=== PATIENT | male | born 1980 | race African-American/Black ===

== ENCOUNTER 2024-05-01 06:07 | Emergency (ER) | payer OTHER ==
[~2024-05-01] VITALS: Ht 182.9 cm; Wt 106.6 kg
[2024-05-01 06:25] VITALS: BP 146/84; TEMP 98.2; O2SAT 99
[2024-05-01] MEDS ORDERED: OLAN5TAB3 PO (06:30)
[2024-05-01] MEDS ORDERED: OLANZAPINE 5 MG TABLET ONE (06:30)
[2024-05-01] MEDS: OLANZAPINE 5 MG TABLET PO ONE (06:32)
== END 2024-05-01 06:53 | disposition home or self-care (01) ==
LOC: ER 06:07
DX: F20.9 Schizophrenia, unspecified (principal); F17.200 Nicotine dependence, unspecified, uncomplicated; Z76.0 Encounter for issue of repeat prescription; Z60.2 Problems related to living alone

== ENCOUNTER 2024-07-22 17:29 | Emergency (ER) | payer OTHER ==
[~2024-07-22] VITALS: Ht 175.3 cm; Wt 90.7 kg
[~2024-07-22 17:29] MED LIST: OLAN5TAB3 PO
[2024-07-22] MEDS: IV NS 0.9% 1,000 ML BAG IV ONE (18:00)
[2024-07-22] MEDS: MECLIZINE HCL 12.5 MG TABLET PO ONE (18:00)
[2024-07-22 18:02] LABS: BASOPHILS # (AUTO) 0.1 K/uL (0.0-0.2); BASOPHILS % (AUTO) 1.3 % (0.0-2.0); EOSINOPHILS # (AUTO) 0.1 K/uL (0.0-0.7); EOSINOPHILS % (AUTO) 3.2 % (0.0-6.0); HEMATOCRIT 42 % (39-51); HEMOGLOBIN 13.9 g/dL (13.5-17.5); LYMPHOCYTES # (AUTO) 1.4 K/uL (0.8-4.8); LYMPHOCYTES % (AUTO) 31.4 % (20.0-44.0); MEAN CORPUSCULAR HEMOGLOBIN 28 PG (26.0-33.0); MEAN CORPUSCULAR HGB CONC 33 g/dl (31.0-36.0); MEAN CORPUSCULAR VOLUME 86 fL (80-96); MONOCYTES # (AUTO) 0.5 K/uL (0.1-1.30); MONOCYTES % (AUTO) 11.6 % (2.0-12.0); NEUTROPHILS # (AUTO) 2.3 K/uL (1.8-8.9); NEUTROPHILS % (AUTO) 52.5 % (43.0-81.0); PLATELET COUNT (AUTO) 189 K/uL (150-450); RED CELL DISTRIBUTION WIDTH 15.3 % (11.5-15.0); WHITE BLOOD COUNT (AUTO) 4.4 K/uL (4.3-11.0)
[2024-07-22 18:12] LABS: CALCIUM, SERUM 8.7 mg/dL (8.5-10.1); CREATININE 1.2 mg/dL (0.6-1.3); POTASSIUM 4.3 mmol/L (3.5-5.1)
[2024-07-22] MEDS ORDERED: MECLIZINE HCL 25 MG TABLET ONE (18:38)
[2024-07-22] MEDS ORDERED: DOXY-326 PO (19:07)
[2024-07-22] MEDS ORDERED: MECL-159 PO (19:07)
[2024-07-22] MEDS ORDERED: LIDOCAINE 1% INJ 50 ML MDV IJ ONE (19:49)
[2024-07-22] MEDS ORDERED: CEFTRIAXONE 500 MG VIAL ONE (19:49)
[2024-07-22] MEDS ORDERED: DOXYCYCLINE HYCLATE (100 MG) 100 MG TABLET ONE (19:50)
[2024-07-22] MEDS: CEFTRIAXONE 1 G VIAL IM ONE (20:13)
[2024-07-22] MEDS: DOXYCYCLINE HYCLATE (100 MG) 100 MG TABLET PO ONE (20:13)
[2024-07-22 21:20] VITALS: BP 128/78; TEMP 98.1; O2SAT 98
[2024-07-23 11:36] LABS: HIV-1 p24 ANTIGEN NON REACTIVE (NONREACTIVE); HIV-1/2 ANTIBODY NON REACTIVE (NONREACTIVE)
[2024-07-25 05:12] LABS: RAPID PLASMA REAGIN QUAL. Non Reactive (Non Reactive)
[2024-07-27 08:12] LABS: *HSV 1 DNA PCR Negative (Negative); *HSV 2 DNA PCR Negative (Negative)
== END 2024-07-22 21:22 | disposition home or self-care (01) ==
LOC: ER 17:37
DX: R42 Dizziness and giddiness (principal); Z20.2 Contact with and (suspected) exposure to infections with a predominantly sexual mode of transmission; F17.200 Nicotine dependence, unspecified, uncomplicated; Z60.2 Problems related to living alone
CPT/HCPCS: 99285; 96360; 70450; 86593; 86592; 93005; 85025; 80048; 36415; 87529; 87806; 96372; J8597; J3490; J0696

== ENCOUNTER 2024-07-27 13:35 | Emergency (ER) | payer OTHER ==
[~2024-07-27] VITALS: Ht 175.3 cm; Wt 90.7 kg
[~2024-07-27 13:35] MED LIST changes: +DOXY-326 PO; +MECL-159 PO
[2024-07-27] MEDS ORDERED: ONDANSETRON 4 MG TAB.RAPDIS ONE (14:49)
[2024-07-27] MEDS: ONDANSETRON 4 MG TAB.RAPDIS PO ONE (14:51)
[2024-07-27 14:58] LABS: BASOPHILS # (AUTO) 0.1 K/uL (0.0-0.2); BASOPHILS % (AUTO) 1.1 % (0.0-2.0); EOSINOPHILS # (AUTO) 0.3 K/uL (0.0-0.7); EOSINOPHILS % (AUTO) 5.3 % (0.0-6.0); HEMATOCRIT 42 % (39-51); HEMOGLOBIN 13.7 g/dL (13.5-17.5); LYMPHOCYTES # (AUTO) 1.3 K/uL (0.8-4.8); LYMPHOCYTES % (AUTO) 25.8 % (20.0-44.0); MEAN CORPUSCULAR HEMOGLOBIN 28 PG (26.0-33.0); MEAN CORPUSCULAR HGB CONC 33 g/dl (31.0-36.0); MEAN CORPUSCULAR VOLUME 86 fL (80-96); MONOCYTES # (AUTO) 0.6 K/uL (0.1-1.30); MONOCYTES % (AUTO) 11.3 % (2.0-12.0); NEUTROPHILS # (AUTO) 2.8 K/uL (1.8-8.9); NEUTROPHILS % (AUTO) 56.5 % (43.0-81.0); PLATELET COUNT (AUTO) 215 K/uL (150-450); RED BLOOD CELL COUNT(AUTO) 4.86 MIL/uL (4.5-6.0); RED CELL DISTRIBUTION WIDTH 15.9 % (11.5-15.0)
[2024-07-27 15:05] LABS: CREATININE 0.9 mg/dL (0.6-1.3); POTASSIUM 4.2 mmol/L (3.5-5.1)
[2024-07-27 15:23] LABS: APPEARANCE,URINE CLEAR (CLEAR); BILIRUBIN,URINE NEGATIVE (NEGATIVE); BLOOD, URINE NEGATIVE Ery/uL (NEGATIVE); COLOR,URINE YELLOW (YELLOW); KETONES,URINE NEGATIVE (NEGATIVE); LEUKOCYTE ESTERASE ,URINE NEGATIVE (NEGATIVE); NITRITE, URINE NEGATIVE (NEGATIVE); PH,URINE 6.5 (5.0-8.0); PROTEIN,URINE NEGATIVE (NEGATIVE); UGLUCOSE NEGATIVE (NEGATIVE)
[2024-07-27] MEDS ORDERED: ONDA4TAB5 PO (15:55)
[2024-07-27 16:22] VITALS: BP 128/78; TEMP 97.9; O2SAT 98
[2024-07-27 16:23] LABS: RBC,URINE 0-2 /HPF (0-2); WBC,URINE 0-2 /HPF (0-3)
[2024-07-27 16:24] LABS: ADD URINE CULTURE NO; BACTERIA,URINE None seen /HPF (None Seen); SQUAMOUS EPITHELIAL CELL,UR 0-2 /HPF (None Seen)
== END 2024-07-27 16:22 | disposition home or self-care (01) ==
LOC: ER 15:39
DX: R53.1 Weakness (principal); R42 Dizziness and giddiness; R50.9 Fever, unspecified; F17.200 Nicotine dependence, unspecified, uncomplicated; F25.9 Schizoaffective disorder, unspecified; F31.9 Bipolar disorder, unspecified; Z59.00 Homelessness unspecified; Z60.2 Problems related to living alone; Z79.899 Other long term (current) drug therapy
CPT/HCPCS: 99284; 93005; 85025; 80048; 81001; 36415; 86850; 98960; Q0162

== ENCOUNTER 2024-08-30 17:31 | Emergency (ER) | payer OTHER ==
[~2024-08-30 17:31] MED LIST changes: +ONDA4TAB5 PO
== END 2024-08-30 18:15 | disposition left against medical advice (07) ==
LOC: ER 17:45
DX: R51.9 Headache, unspecified (principal); Z53.21 Procedure and treatment not carried out due to patient leaving prior to being seen by health care provider

== ENCOUNTER 2024-08-30 20:04 | Emergency (ER) | payer OTHER ==
[~2024-08-30] VITALS: Ht 175.3 cm; Wt 90.7 kg
[2024-08-30 20:53] LABS: BASOPHILS % (AUTO) 0.2 % (0.0-2.0); EOSINOPHILS # (AUTO) 0.2 K/uL (0.0-0.7); EOSINOPHILS % (AUTO) 3.8 % (0.0-6.0); HEMATOCRIT 39 % (39-51); HEMOGLOBIN 12.6 g/dL (13.5-17.5); LYMPHOCYTES # (AUTO) 1.4 K/uL (0.8-4.8); LYMPHOCYTES % (AUTO) 31.2 % (20.0-44.0); MEAN CORPUSCULAR HEMOGLOBIN 28 PG (26.0-33.0); MEAN CORPUSCULAR HGB CONC 32 g/dl (31.0-36.0); MEAN CORPUSCULAR VOLUME 86 fL (80-96); MONOCYTES # (AUTO) 0.6 K/uL (0.1-1.30); NEUTROPHILS # (AUTO) 2.4 K/uL (1.8-8.9); NEUTROPHILS % (AUTO) 51.8 % (43.0-81.0); PLATELET COUNT (AUTO) 195 K/uL (150-450); RED BLOOD CELL COUNT(AUTO) 4.59 MIL/uL (4.5-6.0); WHITE BLOOD COUNT (AUTO) 4.6 K/uL (4.3-11.0)
[2024-08-30 21:01] LABS: CALCIUM, SERUM 8.7 mg/dL (8.5-10.1); CREATININE 1.3 mg/dL (0.6-1.3)
[2024-08-30 21:03] LABS: APPEARANCE,URINE CLEAR (CLEAR); BILIRUBIN,URINE Negative (NEGATIVE); BLOOD, URINE Trace-lysed Ery/uL (NEGATIVE); COLOR,URINE YELLOW (YELLOW); KETONES,URINE Negative (NEGATIVE); LEUKOCYTE ESTERASE ,URINE Negative (NEGATIVE); PH,URINE 6.5 (5.0-8.0); PROTEIN,URINE Negative (NEGATIVE); UGLUCOSE Negative (NEGATIVE); UROBILINOGEN,URINE 0.2 EU/dL (0.2)
[2024-08-30 21:04] LABS: ACETAMINOPHEN <10 ug/ml (10-30); ALCOHOL, BLOOD < 3 mg/dL (0-10); SALICYLATE 0.2 mg/dL (2.8-20.0)
[2024-08-30 21:06] LABS: NITRITE, URINE NEGATIVE (NEGATIVE)
[2024-08-30 21:06] LABS: ALBUMIN 3.2 g/dL (3.4-5.0); BILIRUBIN,TOTAL 0.3 mg/dL (0.2-1.0); TOTAL PROTEIN, SERUM 6.7 g/dL (6.4-8.2)
[2024-08-30 21:07] LABS: ADD URINE CULTURE NO; BACTERIA,URINE None seen /HPF (None Seen); RBC,URINE 0-2 /HPF (0-2); SQUAMOUS EPITHELIAL CELL,UR None Seen /HPF (None Seen); WBC,URINE 0-2 /HPF (0-3)
[2024-08-30 21:10] LABS: AMPHETAMINE, URINE NEGATIVE (NEGATIVE); BARBITURATE, URINE NEGATIVE (NEGATIVE); BENZODIAZEPINE, URINE NEGATIVE (NEGATIVE); CANNABINOID, URINE NEGATIVE (NEGATIVE); COCCAINE, URINE NEGATIVE (NEGATIVE); OPIATE, URINE NEGATIVE (NEGATIVE); PHENCYCLIDINE SCREEN,URINE NEGATIVE (NEGATIVE)
[2024-08-30 22:21] VITALS: BP 115/75; TEMP 98.1; O2SAT 98
== END 2024-08-30 22:21 | disposition home or self-care (01) ==
LOC: ER 20:09
DX: R53.1 Weakness (principal); H53.8 Other visual disturbances; R42 Dizziness and giddiness; F17.200 Nicotine dependence, unspecified, uncomplicated; F25.9 Schizoaffective disorder, unspecified; F31.9 Bipolar disorder, unspecified; Z20.822 Contact with and (suspected) exposure to COVID-19; Z79.899 Other long term (current) drug therapy
CPT/HCPCS: 36415; 80053-TC; 81001; 85025-TC; G0480